=== PATIENT | female | born 1955 | race Caucasian/White ===

== ENCOUNTER 2018-06-03 14:52 | Emergency (ER) | payer MEDICAID ==
[~2018-06-03] VITALS: Ht 152.4 cm; Wt 60.0 kg
[2018-06-03 14:59] VITALS: Ht 152.4 cm; Wt 60.0 kg
[2018-06-03] MEDS ORDERED: DESERYL100 MG PO (15:00)
[2018-06-03] MEDS ORDERED: PROZAC10 MG PO (15:00)
[2018-06-03 15:24] LABS: BASOPHILS 0.6 % (0-2); EOSINOPHILS 1.2 % (0-7); HEMATOCRIT 39.9 % (36.0-48.0); HEMOGLOBIN 14.4 g/dL (12-16); IMMATURE GRANULOCYTES 0.3 % (0-5); LYMPHOCYTES 20.8 % (15-50); MCH 31.5 pg (26.0-34.0); MCHC 36.1 g/dL (31.0-37.0); MCV 87.3 fL (80.0-100.0); MEAN PLATELET VOLUME 9.9 fL (7.4-10.4); MONOCYTES 10.7 % (2-11); NEUTROPHILS 66.4 % (40-80); PLATELET COUNT 419 10x3/uL (130-400); RBC 4.57 10x6/uL (4.00-5.40); RDW 13.3 % (11.5-14.5); WBC 9.8 10x3/uL (4.8-10.8)
[2018-06-03 15:45] LABS: UDS - AMPHET NEGATIVE QUAL (NEGATIVE); UDS - BARB NEGATIVE QUAL (NEGATIVE); UDS - BENZO NEGATIVE QUAL (NEGATIVE); UDS - COCAINE NEGATIVE QUAL (NEGATIVE); UDS - OPIATE NEGATIVE QUAL (NEGATIVE); UDS - PCP NEGATIVE QUAL (NEGATIVE); UDS - THC POSITIVE QUAL (NEGATIVE)
[2018-06-03 15:47] LABS: ALBUMIN 3.9 g/dL (3.4-5.0); ALKALINE PHOSPHATASE 104 U/L (46-116); ALT (SGPT) 50 U/L (10-68); BILIRUBIN - TOTAL 0.51 mg/dL (0.2-1.3); CALC OSMOLALITY 262 mosm/kg (275-300); CHLORIDE - SERUM 98 mmol/L (98-107); CREATININE - SERUM 0.7 mg/dL (0.6-1.3); GLUCOSE 104 mg/dL (74-106); PROTEIN - SERUM 8.3 g/dL (6.4-8.2); SODIUM 133 mmol/L (136-145); THYROID STIMULATING HORMONE 0.82 uIU/mL (0.36-3.74); UREA NITROGEN 5 mg/dL (7-18); eGFR NON AFRICAN AMERICAN 89 mL/min (90-120)
[2018-06-03 15:49] LABS: POTASSIUM - SERUM 2.8 mmol/L (3.5-5.1)
[2018-06-03] MEDS ORDERED: K-DUR20 MEQ PO (15:52)
[2018-06-03 15:57] LABS: APPEARANCE CLEAR (CLEAR); BILIRUBIN NEGATIVE (NEGATIVE); COLOR YELLOW (YELLOW); GLUCOSE NEGATIVE (NEGATIVE); KETONE NEGATIVE (NEGATIVE); NITRITE NEGATIVE (NEGATIVE); PROTEIN NEGATIVE (NEGATIVE); UROBILINOGEN NORMAL (NORMAL)
[2018-06-03 15:58] VITALS: BP 168/084
[2018-06-03 15:59] LABS: BACTERIA FEW /hpf (NONE SEEN); EPITHELIAL CELLS 0-5 /hpf (0-5); RED CELLS - URINE 0-5 /hpf (0-5); WHITE CELLS - URINE 0-5 /hpf (0-5)
== END 2018-06-03 15:59 | disposition home or self-care (01) ==
LOC: D.ER 14:52
PROVIDERS: Emergency Medicine
DX: F41.9 Anxiety disorder, unspecified (principal); E87.6 Hypokalemia

== ENCOUNTER 2020-05-08 12:47 | Inpatient (IN) | payer MEDICARE, MEDICAID ==
[~2020-05-08] VITALS: Ht 152.4 cm; Wt 52.7 kg
[~2020-05-08 12:47] MED LIST: DESERYL100 MG PO; K-DUR20 MEQ PO; PROZAC10 MG PO
[2020-05-08 18:28] LABS: BASOPHILS 0.4 % (0-2); EOSINOPHILS 0.4 % (0-7); HEMATOCRIT 41.7 % (36.0-48.0); HEMOGLOBIN 14.2 g/dL (12-16); IMMATURE GRANULOCYTES 0.4 % (0-5); MCH 30.5 pg (26.0-34.0); MCHC 34.1 g/dL (31.0-37.0); MCV 89.5 fL (80.0-100.0); MEAN PLATELET VOLUME 10.2 fL (7.4-10.4); MONOCYTES 11.2 % (2-11); NEUTROPHILS 71.6 % (40-80); PLATELET COUNT 452 10x3/uL (130-400); RBC 4.66 10x6/uL (4.00-5.40); RDW 12.7 % (11.5-14.5); WBC 11.1 10x3/uL (4.8-10.8)
[2020-05-08 19:16] LABS: ANION GAP 11.8 mmol/L (8-16); BILIRUBIN - TOTAL 0.97 mg/dL (0.2-1.3); CALCIUM 9.3 mg/dL (8.5-10.1); CARBON DIOXIDE 28.3 mmol/L (21.0-32.0); CHOL - HDL RATIO 2.2 ratio (2.3-4.1); CREATININE - SERUM 1.1 mg/dL (0.6-1.3); LDL-HDL RATIO 1.1 ratio (1.5-3.5); POTASSIUM - SERUM 4.1 mmol/L (3.5-5.1); PROTEIN - SERUM 8.3 g/dL (6.4-8.2)
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
[2020-05-08 20:54] VITALS: BP 164/68
[2020-05-08 22:22] VITALS: BP 187/86; BMI 21.9
[2020-05-09 00:13] LABS: BILIRUBIN NEGATIVE (NEGATIVE); GLUCOSE NEGATIVE (NEGATIVE); KETONE NEGATIVE (NEGATIVE); NITRITE NEGATIVE (NEGATIVE); SPECIFIC GRAVITY 1.015 (1.005-1.020); UROBILINOGEN NORMAL (NORMAL)
[2020-05-09 00:16] LABS: BACTERIA FEW /hpf (NEGATIVE); EPITHELIAL CELLS 0-5 /hpf (0-5); RED CELLS - URINE 0-5 /hpf (0-5); WHITE CELLS - URINE 0-5 /hpf (NEGATIVE)
--- NOTE | 2020-05-09 01:18 | NUR ---
B) Pqtient is alert and oriented to person, place and time, calm and cooperative, no S.I. this shift, I) Administered scheduled medications as ordered, monitored for safety, contracted for safety R) Mediation compliant, pleasant and friendly toward staff, P) Continue plan of care.
--- NOTE | 2020-05-09 02:11 | NUR ---
PATIENT GIVEN TYLENOL 650 MG PO FOR LEG PAIN 5 OF 10 AT 20:20.
--- NOTE | 2020-05-09 09:25 | NUR ---
TYLENOL 650MG PO FOR C/O CHRONIC ARTHRITIS PAIN RT LEG AND HIP.RATES PAIN A 2 BUT STATES IT WILL GET WORSE IF I DON'T TAKE SOMETHING.
[2020-05-09 09:46] VITALS: BP 133/65
--- NOTE | 2020-05-09 13:47 | NUR ---
PT SITTING ON COUCH AT THIS TIME. NO DISTRESS NOTED. PT IS ALERT AND ORIENTED TO PERSON, PLACE AND TIME. PT DENIES SI AT THIS TIME. PT IS COMPLIANT WITH MEDS, VITALS AND ASSESSMENTS. PT CAN MAKE NEEDS KNOWN. PT HAS NOT VOICED ANY PARANOID THOUGHTS. WILL CONT PLAN OF CARE.
[2020-05-09 15:03] VITALS: Ht 152.4 cm; Wt 52.7 kg
--- NOTE | 2020-05-09 18:49 | NUR ---
PT CALLED HER MOTHER AND ASKED HER TO COME GET HER. PT STATED SHE WANTS TO GO HOME CAUSE HER 72 HOUR WAS UP. SHE HAD BEEN HERE FOR 3 DAYS." NURSE STATED SHE ADMITTED LASTNIGHT AND ON THIS UNIT THE 71 YEAR OLD WAS COUNTED DIFFERENT. SHE DISAGREED.
--- NOTE | 2020-05-09 18:50 | NUR ---
PT MOM CAME TO ER TO DISCHARGE HER. Satinder LAWS RN EXPLAINED TO ED THAT THE PT WAS NOT DISCHARGING AT THIS TIME. PT MOM FRIEND CAME TO THE DOOR AT BACK OF [facility] TO ANTIQUE FINISHER PT. NURSES ATTEMPTED TO EXPLAIN THAT SHE COULDNT HAVE VISITORS OR DISCHARGE AT THIS TIME. PT BECAME VERBAL AGGRESSIVE WITH STAFF AND YELLING AT STAFF MEMBERS THAT HER 72 HOUR HOLD WAS LIFTED AND SHE COULD LEAVE. SHE STATED SHE BEEN IN OUR UNIT SINCE THURSDAY. NURSE ATTEMPTED TO EXPLAIN SHE WAS ADMITTED ON THURSDAY NIGHT AND 72 HOUR HOLD TIMES WERE DIFFERENT IN OUR DEPARTMENT. PT DID NOT VERBALIZE UNDERSTANDING.
--- NOTE | 2020-05-09 19:00 | NUR ---
PATIENTS MOTHER CALLED AND ATTEMPTED TO SPEAK WITH HER AT THIS TIME. UNABLE TO GIVE CODE WORD. NURSE EDUCATED ON THE PHONE CALL TIMES AND NURSE COULD NOT GIVE OUT ANY INFORMATION WITHOUT A PASSCODE. SHE VOICED UNDERSTANDING.
--- NOTE | 2020-05-09 19:54 | NUR ---
PT MOTHER CALLED TO SPEAK TO HER DAUGHTER, UNABLE TO GIVE PASSCODE. SHE WANTED TO CALL HER ROOM.
[2020-05-09 20:00] VITALS: BP 111/61
--- NOTE | 2020-05-10 00:36 | NUR ---
RECEIVED PATIENT AND SHE WAS VERY AGITATED, SHE WAS INSISTING ON LEAVING AND SHE COULD NOT BE CONVINCED OTHERWISE. SHE WAS GIVEN HALDOL AND ATIVAN @ 1910 IM. IT WAS EFFECTIVE.
[2020-05-10 06:10] LABS: RAPID PLASMA REAGIN Non Reactive (Non Reactive)
--- NOTE | 2020-05-10 08:00 | NUR ---
B) PATIENT IS ALERT AND ORIENTED TO SELF, PLACE AND TIME. CALM AND COOPERATIVE WITH CARE AND ASSESSMENT. I) ADMINISTERED SCHEDULED MEDICATIONS. MONITOR FOR SAFETY AND NEEDS. R) MEDICATION AND ASSESSMENT COMPLIANT. NO SI STATEMENTS NOTED. CONTRACTS FOR SAFETY. P) CONTINUE PLAN OF CARE AND MONITOR FOR BEHAVIORAL CHANGES.
[2020-05-10 08:24] VITALS: BP 152/77
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
[2020-05-10 20:00] VITALS: BP 141/65
--- NOTE | 2020-05-11 10:06 | NUR ---
The patient is awake and alert she is pleasant and calm, she has not made any mention of depression or S.I. She is smiling and has a pleasant affect. She ambulates independently. Provide prescribed meds. The patient is compliant with meds. Continue POC.
[2020-05-11 10:55] VITALS: BP 167/69
--- NOTE | 2020-05-11 15:30 | NUR ---
Family brought clothes, inventoried and put on the belongings list and clothes are in her room.
[2020-05-11 20:00] VITALS: BP 121/72
--- NOTE | 2020-05-12 02:09 | NUR ---
B) Patient is alert and oriented to person, place and time, calm and keeps to herself I) Administered scheduled medications as ordered, monitored for needs and wants, R) Medication compliant, sleeping quietly now, P) Continue plan of care.
[2020-05-12 10:30] VITALS: BP 145/76
--- NOTE | 2020-05-12 16:50 | NUR ---
RECEIVED THIS AM SITTING UP IN CHAIR IN HALLWAY.IS ORIENTED X 3.DENIES THOUGHTS OF HARMING SELF.IS COMPLIANT WITH STAFF AND MEDS.WILL CONTINUE WITH CURRENT PLAN OF CARE,MONITOR FOR CHANGES AND SAFETY.
[2020-05-12 20:00] VITALS: BP 166/79
--- NOTE | 2020-05-13 00:26 | NUR ---
B) Patient is alert and oriented to person, place, and time, anxious to return home, I) Administered scheduled medications as ordered, monitored for safety R) Mediation compliant, pleasant and friendly toward staff and other patients, P) Continue plan of care.
[2020-05-13 12:57] VITALS: BP 136/75
--- NOTE | 2020-05-13 16:03 | NUR ---
RECIVED THIS AM SITTING IN CHAIR IN HALLWAY.IS ORIENTED X 3 BUT DOES HAVE SOME CONFUSION.IS COMPLIANT WITH STAFF AND MEDS.DENIES SUICIDAL THOUGHTS.WILL CONTINUE WITH CURRENT PLAN OF CARE,MONITOR FOR CHANGES AND SAFETY.
[2020-05-13 20:00] VITALS: BP 139/64
--- NOTE | 2020-05-13 20:43 | NUR ---
RECEIVED IN DAYROOM. SITTING IN A CHAIR WITH PEERS AT HER SIDE. CALM AND COOPERATIVE WITH CARE AND ASSESSMENT. NO STATEMENTS OF SELF HARM VOICED. ENCOURAGE TO EXPRESS NEEDS. CONTINUES TO SIT CALMLY IN DAYROOM. CONTINUE PLAN OF CARE.
--- NOTE | 2020-05-13 21:22 | NUR ---
PT REFUSED ALL OF HER HS MEDICATIONS. STATING THAT THEY MAKE HER STOMACH UPSET.
[2020-05-14 10:28] VITALS: BP 162/76
--- NOTE | 2020-05-14 10:54 | NUR ---
Nutrition Follow-up: Chart reviewed. notes that patient states that she has no appetite and was started on megace. PO intake appear to have been good yesterday (90-100% x 3). Diet: Regular + Boost TID PO intake: ~58% average x last 9 meals Last BM: 05/12/20. WT: 112# (05/13/20); Admit Wt: 112# (05/08/20) Meds noted: megace. No new labs. Recommend continue current diet and oral nutrition supplements. Recommend continue appetite stimulant as medically feasible. Will continue to monitor PO intake and wt trend. RD following.
--- NOTE | 2020-05-14 12:00 | NUR ---
RECEIVED IN HALLWAY OUTSIDE OF NURSES STATION. CALM AND COOPERATIVE WITH CARE AND ASSESSMENT. DENIES SUICIDAL IDEATION. REDIRECT AND REORIENT NEEDED. EATING LUNCH AT THIS TIME. CONTINUE PLAN OF CARE.
--- NOTE | 2020-05-14 14:14 | PN ---
PATIENT:BREE PANIAGUA MEDICAL RECORD: [id number] LOCATION:[facility] ADMISSION DATE: 05/08/20 PROGRESS NOTE DATE OF SERVICE: 05/10/2020 SUBJECTIVE: The patient's case was discussed with staff. She has no new complaint. OBJECTIVE: The patient was quite agitated last night, was making delusional statements, and had to receive p.r.n. medication for her psychotic symptoms. ASSESSMENT: Major depression with psychosis. PLAN: The patient is going to be started on Geodon at a scheduled dose of 20 mg at bedtime. Geodon is being used to treat her underlying disruptive behaviors and psychotic symptoms. She will be monitored for clinical changes. TRANSINT:[id number] Voice Confirmation ID: [id number] DOCUMENT ID: [id number] NICCI LAMA MD at 1414 CC: [id number] DICTATION DATE: 05/10/20 1623 SPANISH MOSS PICKER: 05/10/20 [id number] ADM IN [place] [id number] [place] [id number]
[2020-05-14 20:38] VITALS: BP 143/72
--- NOTE | 2020-05-14 22:46 | NUR ---
RECEIVED IN DAYROOM. MOVING ABOUT IN A WHEELCHAIR, CALM AND COOPERATIVE WITH CARE AND ASSESSMENT. NO STATEMENTS OF SELF HARM VOICED THIS EVENING. ENCOURAGE TO EXPRESS NEEDS. RESTING IN BED WITH EYES CLOSED AT THIS TIME. CONTINUE PLAN OF CARE.
--- NOTE | 2020-05-15 08:00 | NUR ---
RECEIVED IN HALLWAY OUTSIDE OF NURSES STATION. CALM AND COOPERATIVE WITH CARE AND ASSESSMENT. DENIES SUICIDAL IDEATION. REDIRECT AND REORIENT NEEDED. EATING AT THIS TIME. CONTINUE PLAN OF CARE.
[2020-05-15 08:07] VITALS: BP 131/64
--- NOTE | 2020-05-15 11:30 | NUR ---
PATIENT VERY CONFUSED. HALLUCINATING. OWEN THE MHT GAVE HER HALDOL, GEODON, AND AMITRIPTYLINE. PATIENT INFORMED SHE HAS NOT BEEN GIVEN ANY OF THOSE MEDS FROM ANY STAFF MEMBER.
--- NOTE | 2020-05-15 15:31 | PN ---
PATIENT:BREE PANIAGUA MEDICAL RECORD: [id number] LOCATION:[facility] ADMISSION DATE: 05/08/20 PROGRESS NOTE DATE OF SERVICE: 05/14/2020 SUBJECTIVE: The patient's case was discussed with staff. She has no new complaint. OBJECTIVE: The patient is angry and says that she is not going to take any of her medications. She says she is angry because she does not feel well. She says that she is not feeling well because we have slipped liquid Haldol into the soup that she had at lunchtime. Telling her that that did not happen does not seem to help. She wants me to stop all of her medications except the Prozac. ASSESSMENT: Major depression. PLAN: I am going to comply with this request. She will be monitored, so that her blood pressure does not get too high. She is delusional clearly, but I think that at least for 1 day trying to gain her confidence and build rapport will be an effective maneuver. TRANSINT:[id number] Voice Confirmation ID: [id number] DOCUMENT ID: [id number] NICCI LAMA MD at 1531 CC: [id number] DICTATION DATE: 05/14/20 1600 TEST CARRIER: 05/15/20 0216 [facility] [address] [place] [address]
[2020-05-15 19:24] VITALS: BP 144/66
--- NOTE | 2020-05-16 00:36 | NUR ---
RECEIVED IN DAYROOM. SITTING IN A CHAIR WITH PEERS AT HER SIDE. NOT SOCAILIZING. CALM AND COOPERATIVE WITH CARE AND ASSESSMENT. NO STATEMENTS OF SELF HARM VOICED THIS PM. ENCOURAGE TO EXPRESS NEEDS. RESTING IN BED WITH EYES CLOSED AT THIS TIME. CONTINUE PLAN OF CARE.
[2020-05-16 07:56] VITALS: BP 119/68
--- NOTE | 2020-05-16 11:09 | NUR ---
Nutrition Follow-up: Chart reviewed, noted MD started Megace ES on 05/12/20, however it has now been discontinued. Reason for D/C was unspecified. Diet: Regular + Boost TID PO intake: ~48% average x last 9 meals Last BM: 05/12/20. WT: 112# (05/13/20); Admit Wt: 112# (05/08/20) Meds and labs reviewed. Recommend resume appetite stimulant as medically feasible. Recommend continue current diet and oral nutrition supplements. RD following.
--- NOTE | 2020-05-16 13:02 | PN ---
PATIENT:BREE PANIAGUA MEDICAL RECORD: [id number] LOCATION:[facility] ADMISSION DATE: 05/08/20 PROGRESS NOTE DATE OF SERVICE: 05/15/2020 SUBJECTIVE: The patient's case was discussed with staff. She has no new complaint. OBJECTIVE: The patient is still accusing the staff of having placed various psychoactive medications in her food. She names these medications, specifically indicating some knowledge of them. Yet when asked about a longitudinal psychiatric history, she is denying it. This does not quite make sense that she knows the names of these medicines, has found that she is allergic to them or does not like them actually and then says she has never had treatment before. ASSESSMENT: Major depression. PLAN: I am going to restart some of the patient's medications. I was hoping that stopping them would help build some therapeutic rapport but it did not. She is delusional. She needs medications. TRANSINT:[id number] Voice Confirmation ID: [id number] DOCUMENT ID: [id number] NICCI LAMA MD at 1302 CC: [id number] DICTATION DATE: 05/15/20 1630 FORENSIC LOCKSMITH: 05/16/20 0044 ADM IN [facility] [address] [place] [address]
--- NOTE | 2020-05-16 17:49 | NUR ---
PT IS AWAKE AND ALERT. PT CALM AND COOPERATIVE WITH ASSESSMENT. PRESCRIBED MEDS PROVIDED ORDERED. MED COMPLIANT. DENIES SI AT THIS TIME. WILL CPOC.
[2020-05-16 20:47] VITALS: BP 144/48
--- NOTE | 2020-05-17 00:28 | NUR ---
B.) PT IS ALERT AND ORIENTED X4. SHE IS ABLE TO VOICE HER NEEDS. SHE IS RECEIVED IN THE DAYROOM SITTING WITH PEERS BUT IS WITHDRAWN. SHE APPEARS FLAT AFFECT AND ONLY SPEEKS WHEN SPOKEN TO. I.) PROVIDED PM MEDICATIONS PRESCRIBED. R.) COMPLIANT WITH ALL MEDICATIONS. P.) WILL CONTINUE TO MONITOR.
--- NOTE | 2020-05-17 09:00 | NUR ---
B) PATIENT ALERT AND ORIENTED TO SELF, CALM AND COOPERATIVE, AND SOCIAL WITH PEERS. SHE ONLY PEAKS WHEN SPOKEN TO. I) ADMINISTERED SCHEDULED MEDICATIONS, MONITORED FOR SAFETY AND FOR NEEDS. R) MEDICATION COMPLIANT, PLEASANT ANDSOCIAL TOWARDS PEERS. P) CONTINUE PLAN OF CARE.
[2020-05-17 09:51] VITALS: BP 101/42
--- NOTE | 2020-05-17 11:00 | NUR ---
PATIENT DENIES SUICIDAL IDEATIONS AT THIS TIME.
--- NOTE | 2020-05-17 15:32 | PN ---
PATIENT:BREE PANIAGUA MEDICAL RECORD: [id number] LOCATION:[facility] ADMISSION DATE: 05/08/20 PROGRESS NOTE DATE OF SERVICE: 05/16/2020 SUBJECTIVE: The patient's case was discussed with staff. She has no new complaint. OBJECTIVE: The patient is depressed, but not suicidal. She did not have any reports of delusional thinking today and I actually asked her about this and she denied them. Her blood pressure is excellent and she is willing to take the low dose of lisinopril. I would anticipate she can be transitioned out of the hospital soon if this level of improvement continues. TRANSINT:[id number] Voice Confirmation ID: [id number] DOCUMENT ID: [id number] NICCI LAMA MD at 1532 CC: [id number] DICTATION DATE: 05/16/20 1615 TOWEL SEWER: 05/17/20 0209 ADM IN [facility] [address] [place] [address]
--- NOTE | 2020-05-17 19:07 | NUR ---
a family member called and wanted to know what her meds were, she was ready to go home, if she was ready to go or not she needs to take care of her mom cause she has dementia. she has a mental disorder and she needs to be there. her mother does not understand. we want to talk to the doctor for me or her mom. nurse stated she was her own person and i could not discuss her care without the pt consent but she could speak with her. nurse transferred her to pt so she could speak with her.
[2020-05-17 20:23] VITALS: BP 144/64
--- NOTE | 2020-05-18 01:23 | NUR ---
B) Patient is alert and oriented to person, place and time, calm and cooperative this shift, I) Administered scheduled medications as ordered, monitored for safety R) Mediation compliant, pleasant and frindly toward staff and peers, P) Continue plan of care.
--- NOTE | 2020-05-18 09:52 | PN ---
PATIENT:BREE PANIAGUA MEDICAL RECORD: [id number] LOCATION:[facility] ADMISSION DATE: 05/08/20 PROGRESS NOTE DATE OF SERVICE: 05/17/2020 SUBJECTIVE: The patient's case was discussed with staff. She has no new complaint. OBJECTIVE: The patient is in good behavioral control with poor insight about her situation. The patient is denying that she would seek to harm herself. ASSESSMENT: Major depression. PLAN: Current medicines have been reviewed and will be maintained. Her mood has significantly improved and she is no longer making the delusional statements that she previously did. The psychotic symptoms seemed to have improved without the use of an antipsychotic medication and I am certainly very pleased about this and hopefully, I will be able to carry her through this episode of illness without using an antipsychotic. TRANSINT:[id number] Voice Confirmation ID: [id number] DOCUMENT ID: [id number] NICCI LAMA MD at 0952 CC: [id number] DICTATION DATE: 05/17/20 1645 WELL CONTROL INSTRUCTOR: 05/17/20 6923 ADM IN [address] [place] [address]
--- NOTE | 2020-05-18 10:09 | NUR ---
The patient is awake and alert, she is pleasant and compliant she is oriented x4. She ambulates independently. She has not made any suicidal or homicidal ideations today. Provide prescribed meds. The patient is compliant with meds. Continue POC.
[2020-05-18 11:01] VITALS: BP 124/55
--- NOTE | 2020-05-18 19:54 | NUR ---
RECEIVED PATIENT SITTING IN DAYROOM, PLAYING A GAME WITH TWO OTHER PATIENTS, GETTING ALONG WELL, SHE MAKES ALL OF HER NEEDS KNOWN. COMPLIANT WITH HER MEDS, HOWEVER SHE DOES HAVE POOR INSIGHT. WILL FOLLOW POC
[2020-05-18 20:00] VITALS: BP 130/68
--- NOTE | 2020-05-19 08:29 | NUR ---
The patient is calm and pleasant she is interacting with her peers, she is very helpful with the other patients. She is ambulatory. She denies SI, she is reactive in affect, but she does not want to be here and she does not want to take her meds. She is exhibiting some intermittant confusion. Provide prescribed meds. Will monitor her compliance with meds. Continue POC.
[2020-05-19 10:10] VITALS: BP 108/47
--- NOTE | 2020-05-19 12:00 | NUR ---
Obtained specimen for COVID, sent to lab.
[2020-05-19 20:42] VITALS: BP 132/60
--- NOTE | 2020-05-19 21:05 | NUR ---
PATIENT IS PLEASANT, QUIET BUT SHE REFUSED HER ARICEPT THIS EVENING, THE BENEFITS WERE EXPLAINED TO HER AND SHE STILL REFUSED IT AND SAID THAT IT MADE HER TOO DIZZY AND IT WAS EXPLAINED THAT DIZZINESS WAS A SIDE EFFECT AND IT WILL NORMALLY GO AWAY ONCE HER BODY GETS USE TO IT AND SHE STILL REFUSED. BED ALARM ON AND CALL [facility] IN [place]
[2020-05-20 09:48] VITALS: BP 115/58
--- NOTE | 2020-05-20 12:54 | NUR ---
PT IS SITTING IN RECLINING CHAIR IN DAYROOM SOCIALIZING WITH PEERS. CALM AND COOPERATIVE WITH ASSESSMENT. PRESCRIBED MEDS PROVIDED ORDERED. MED COMPLIANT. NO BEHAVIORS AT THIS TIME. DENIES SI AT THIS TIME. WILL CPOC.
[2020-05-20 21:08] VITALS: BP 125/63; BP 133/68
--- NOTE | 2020-05-20 22:51 | NUR ---
RECEIVED IN DAYROOM. SITTING IN A CHAIR WITH PEERS AT HER SIDE. CALM AND COOPERATIVE WITH CARE AND ASSESSMENT. NO STATEMENTS OF SELF HARM VOCIED THIS PM. ENCOURAGE TO EXPRESS NEEDS. RESTING IN BED WITH EYES CLOSED AT THIS TIME. CONTINUE PLAN OF CARE.
[2020-05-21 08:37] VITALS: BP 130/64
[2020-05-21] MEDS ORDERED: ANUSOL-HC25 MG RC (16:16)
[2020-05-21] MEDS ORDERED: CALCIUM 250+D T1 TAB PO (16:17)
[2020-05-21] MEDS ORDERED: MIRALAX17 GM PO (16:17)
[2020-05-21] MEDS ORDERED: ASPIRIN EC81 M1 PO (16:17)
[2020-05-21] MEDS ORDERED: PROZAC20 MG PO (16:17)
[2020-05-21 20:06] VITALS: BP 133/56; BP 146/69
--- NOTE | 2020-05-21 22:22 | NUR ---
RECEIVED IN DAYROOM. SITTING IN A CHAIR WITH PEERS AT HER SIDE. SOCIAL. CALM AND COOPERATIVE WITH CARE AND ASSESSMENT. NO STATEMENTS OF SELF HARM VOICED. ENCOURAGE TO EXPRESS NEEDS. RESTING IN BED WITH EYES CLOSED. CONTINUE PLAN OF CARE.
[2020-05-22 09:05] VITALS: BP 145/69
--- NOTE | 2020-05-22 13:20 | PN ---
PATIENT:BREE PANIAGUA MEDICAL RECORD: [id number] LOCATION:[facility] ADMISSION DATE: 05/08/20 PROGRESS NOTE DATE OF SERVICE: 05/21/2020 SUBJECTIVE: The patient's case was discussed with staff. She has no new complaint. OBJECTIVE: The patient denies intent to harm herself or others. She tolerates her medicines well. ASSESSMENT: Major depression. PLAN: The patient will be transitioned out of the hospital tomorrow. Her long-term prognosis is guarded. Both supportive and educational interventions were made. TRANSINT:[id number] Voice Confirmation ID: [id number] DOCUMENT ID: [id number] NICCI LAMA MD at 1320 CC: [id number] DICTATION DATE: 05/21/20 1613 AIRCRAFT MAINTENANCE ENGINEER: 05/22/20 0016 ADM IN [facility] [address] [place] [address]
--- NOTE | 2020-05-22 13:58 | NUR ---
SW TALKED TO PT ABOUT HER FOLLOW UP APPOINTMENTS. PT WILL BE SEEN BY DR ENG ON 06/12 AND WAS REFERRED TO [facility] [place]. PT WAS GIVEN WALKIN SCHEDULE FOR NEW PTS AT [facility]. PT AGREED TO CONTINUE OUTPATIENT TREATMENT.
--- NOTE | 2020-05-22 14:00 | NUR ---
PT DISCHARGED HOME. ALL PAPERWORK FAXED TO PCP AND COPY SENT WITH PT. NO S/SX OF DISTRESS NOTED.
--- NOTE | 2020-05-23 15:36 | PN ---
PATIENT:BREE PANIAGUA MEDICAL RECORD: [id number] LOCATION:[facility] ADMISSION DATE: 05/08/20 PROGRESS NOTE DATE OF SERVICE: 05/22/2020 SUBJECTIVE: The patient's case was discussed with staff. She has no new complaint. OBJECTIVE: The patient denies intent to harm herself or others. She generally tolerates her medicines well. ASSESSMENT: Major depression. PLAN: The patient will be discharged today. Followup will be with her primary care physician and outpatient mental health clinic. TRANSINT:[id number] Voice Confirmation ID: [id number] DOCUMENT ID: [id number] NICCI LAMA MD at 1536 CC: [id number] DICTATION DATE: 05/22/20 1549 DAIRY FEED WORKER: 05/23/20 0120 DIS IN 05/22/20 [facility] [address] [place] [address]
== END 2020-05-22 14:00 | disposition home or self-care (01) | DRG 885 ==
LOC: D.PSYCH 12:47
PROVIDERS: ADMIT Psychiatry & Neurology Psychiatry; ATTEND Psychiatry & Neurology Psychiatry
DX: F33.3 Major depressive disorder, recurrent, severe with psychotic symptoms (principal); M19.90 Unspecified osteoarthritis, unspecified site; T43.592A Poisoning by other antipsychotics and neuroleptics, intentional self-harm, initial encounter; K21.9 Gastro-esophageal reflux disease without esophagitis; I10 Essential (primary) hypertension; K64.9 Unspecified hemorrhoids; K59.00 Constipation, unspecified; F41.8 Other specified anxiety disorders; J30.9 Allergic rhinitis, unspecified; F22 Delusional disorders